=== PATIENT | female | born 1965 | race Caucasian/White ===

== ENCOUNTER 2017-07-04 08:16 | Day surgery (SDC) | payer BC ==
[~2017-07-04] VITALS: Ht 157.5 cm; Wt 143.2 kg
[~2017-07-04 08:16] MED LIST: CEPH500; FERR65TA PO; OXYC1SOL5 PO
[2017-07-04 08:33] VITALS: BP 173/108; PULSE 87; RESP 18; TEMP 98.5; O2SAT 97
[2017-07-04] MEDS ORDERED: FOLI800T PO (08:42)
[2017-07-04] MEDS ORDERED: FERR325C PO (08:42)
[2017-07-04] MEDS ORDERED: NABU1TAB37 PO (08:42)
[2017-07-04] MEDS ORDERED: METH2.5T PO (08:42)
[2017-07-04] MEDS ORDERED: SODIUM CHLOR 0.9% 1000 ML IV SCH (09:00)
[2017-07-04] MEDS ORDERED: LIDOCAINE HCL 1% 20 ML VIAL ONE (09:14)
--- NOTE | 2017-07-04 15:07 | RADRPT ---
EXAM DATE/TIME: 07/04/2017 00:00 FINDINGS/CONSULTATION: The patient was sent for CT-guided biopsy of lymphadenopathy. Upon review of the CT of the abdomen a nd pelvis dated 05/15/17 it was noted that there are two mildly enlarged left iliac lymph nodes which are very deep in location in this obese patient. Percutaneous biopsy of these mildly enlarged lymph nodes is felt to be difficult with increased risk due to adjacent blood vessels. The findings were d iscussed with the patient and alternative option of PET/CT scan to determine if these mildly enlarged lymph nodes demonstrate hypermetabolism was agreed on. Percutaneous biopsy was not performed at thi s time. CONCLUSION: Percutaneous biopsy of the mildly enlarged left iliac lymphadenopathy was not performed due to the ve ry deep location and increased risk related to adjacent vessels. PET/CT scan would be helpful to det ermine if either of these mildly enlarged lymph nodes demonstrates hypermetabolism. If these demonst rate no significant hypermetabolism they are less likely to represent metastatic lymphadenopathy. Jamil Turner MD on July 04, 2017 at 14:51 Board Certified Radiologist. This report was verified electronically.
== END 2017-07-04 10:21 | disposition home or self-care (01) ==
LOC: HRAD 08:16 → HRIP 08:16 → HRAD 10:21
PROVIDERS: ATTEND Nurse Practitioner Family
DX: R59.1 Generalized enlarged lymph nodes (principal); Z53.09 Procedure and treatment not carried out because of other contraindication
CPT/HCPCS: 99211; J7030; G0463